=== PATIENT | male | born 1990 | race Hispanic/Latino ===

== ENCOUNTER 2018-07-31 06:03 | Emergency (ER) | payer OTHER ==
[2018-07-31] MEDS ORDERED: Naloxone 0.4 mg/ml Inj (Adult) ONE ×2 (06:11→06:12)
[2018-07-31 06:22] VITALS: TEMP 97.7
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
[2018-07-31 06:37] LABS: MEAN CELL VOLUME 94.6 fl (80.0-105.0); MEAN CORPUSCULAR HEMOGLOBIN 31.5 pg (25.0-35.0); MEAN CORPUSCULAR HGB CONC 33.3 g/dl (31.0-37.0); MEAN PLATELET VOLUME 9.8 fl (7.0-11.0); RBC 4.44 10^6/uL (3.5-6.1); RED CELL DISTRIBUTION WIDTH 13.7 % (11.5-14.5); WHITE BLOOD COUNT 6.1 10^3/uL (4.5-11.0)
[2018-07-31] MEDS ORDERED: Naloxone 0.4 mg/ml Inj (Adult) IVP STA (06:38)
[2018-07-31 06:43] LABS: INR 1.17; PARTIAL THROMBOPLASTIN TIME 30.2 Seconds (26.9-38.3); PROTHROMBIN TIME 13.2 SECONDS (9.4-12.5)
[2018-07-31 06:45] LABS: ALB/GLOB RATIO 1.4 (1.1-1.8); ALBUMIN 5.1 g/dL (3.0-4.8); ALT/SGPT 18 U/L (7-56); AST/SGOT 28 U/L (17-59); BLOOD UREA NITROGEN 14 mg/dL (7-21); CALCIUM 9.7 mg/dL (8.4-10.5); GFR NON-AFRICAN AMERICAN > 60
[2018-07-31 06:55] LABS: TROPONIN I < 0.01 ng/mL
[2018-07-31 07:01] LABS: URINE BILIRUBIN SMALL (NEGATIVE); URINE BLOOD NEGATIVE (NEGATIVE); URINE GLUCOSE (UA) NEGATIVE (NEGATIVE); URINE LEUKOCYTE ESTERASE NEGATIVE Leu/uL (NEGATIVE); URINE PROTEIN TRACE mg/dL (<30 mg/dL)
[2018-07-31 07:02] LABS: URINE APPEARANCE SL CLOUDY (CLEAR); URINE COLOR YELLOW (YELLOW)
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
[2018-07-31 07:27] LABS: URINE BACTERIA MOD /hpf
[2018-07-31 07:28] LABS: URINE AMORPHOUS SEDIMENT SMALL /hpf; URINE RBC 0 - 2 /hpf (0-2)
[2018-07-31 07:53] LABS: BARBITURATES, UR NEGATIVE (NEGATIVE); BENZODIAZEPINES, UR NEGATIVE (NEGATIVE); OPIATES, UR NEGATIVE (NEGATIVE); PHENCYCLIDINE, UR NEGATIVE (NEGATIVE)
[2018-07-31 09:11] VITALS: O2SAT 96
--- NOTE | 2018-07-31 09:27 | RAD ---
Date of service: 2018-07-31 06:37:05 HISTORY: medical clearance COMPARISON: None available. FINDINGS: LUNGS: No active pulmonary disease. PLEURA: No significant pleural effusion identified, no pneumothorax apparent. CARDIOVASCULAR: No aortic atherosclerotic calcification present. Normal cardiac size. No pulmonary vascular congestion. OSSEOUS STRUCTURES: No significant abnormalities. VISUALIZED UPPER ABDOMEN: Normal. OTHER FINDINGS: None. IMPRESSION: No active disease.
--- NOTE | 2018-07-31 09:43 | CARD ---
APPROVED REPORT Date of service: 07/31/2018 EKG Measurement Heart [id number] <Conclusion> Normal sinus rhythm Incomplete right bundle branch block Borderline ECG
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
[2018-07-31 10:50] VITALS: BP 132/80; PULSE 68; RESP 18
== END 2018-07-31 10:15 | disposition home or self-care (01) ==
LOC: ED 06:03
DX: R55 Syncope and collapse (principal)
CPT/HCPCS: 70450; 71045; 72125; 80053; 80320; 80324; 80345; 80346; 80349; 80353; 80358; 80361; 81001; 82550; 82948; 83615; 83992; 84484; 85027; 85610; 85730; 90791; 93005; 96374; 99285; J2310